=== PATIENT | female | born 1950 | race Caucasian/White ===

== ENCOUNTER → 2016-06-10 | Outpatient (CLI) | payer OTHER ==
[~2016-06-10] MED LIST: CALCIUM 500 MG1 EAC1 PO; ECO81 PO; ESTROVEN MAXIMU PO; LIPI10 PO; VITAMIN E100 IU PO
== END | disposition home or self-care (01) ==
LOC: MA 14:35
PROC: BH02ZZZ Plain Radiography of Bilateral Breasts (ICD-10-PCS; principal; 2016-06-10)
DX: Z12.39 Encounter for other screening for malignant neoplasm of breast (principal)
CPT/HCPCS: G0202

== ENCOUNTER → 2017-10-13 | Outpatient (CLI) | payer OTHER | END | disposition home or self-care (01) | LOC: MA 13:33 | PROC: BH02ZZZ Plain Radiography of Bilateral Breasts (ICD-10-PCS; principal; 2017-10-13) | DX: Z12.31 Encounter for screening mammogram for malignant neoplasm of breast (principal) | CPT/HCPCS: 77067 ==

== ENCOUNTER 2017-11-27 09:11 | Emergency (ER) | payer BC ==
[~2017-11-27] VITALS: Ht 162.6 cm; Wt 72.1 kg
[2017-11-27 09:16] VITALS: BP 134/71; Ht 162.6 cm; Wt 72.1 kg
== END 2017-11-27 10:00 | disposition home or self-care (01) ==
LOC: ED 09:11
DX: K04.7 Periapical abscess without sinus (principal); Z88.5 Allergy status to narcotic agent; Z88.6 Allergy status to analgesic agent